=== PATIENT | female | born 1950 | race Caucasian/White ===

== ENCOUNTER 2016-08-14 15:42 | Outpatient (CLI) | payer MEDICARE, BC ==
--- NOTE | 2016-08-16 16:44 | Mammography Report ---
DIGITAL SCREENING MAMMOGRAM: 08/14/2016 CLINICAL INDICATION: A 66-year-old for screening. COMPARISON: 08/2013, 08/2011, 04/2010, 04/2009, 04/2008, 02/2007. TECHNIQUE: Routine CC and MLO projections were obtained of the breasts. FINDINGS: Parenchymal tissue within the breasts is predominantly fatty replaced. There are no domin ant masses, suspicious microcalcifications, or secondary signs of malignancy. In comparison to the p revious studies, there are no significant changes. IMPRESSION: NO MAMMOGRAPHIC EVIDENCE OF MALIGNANCY. NO SIGNIFICANT INTERVAL CHANGES. RECOMMENDATION: Screening mammography is recommended annually. BIRADS category 1 - negative. STANDARD QUALIFYING STATEMENTS 1. This examination was reviewed with the aid of Computed-Aided Detection (CAD). 2. A negative or benign imaging report should not delay biopsy if clinically suspicious findings are present. Consider surgical consultation if warranted. More than 5% of cancers are not identified b y imaging. 3. Dense breasts may obscure an underlying neoplasm. JOB #: [id number] EXT JOB #:[id number]
== END 2016-08-14 15:43 | disposition home or self-care (01) ==
LOC: DI 15:42
PROVIDERS: ATTEND Internal Medicine
DX: Z12.31 Encounter for screening mammogram for malignant neoplasm of breast (principal)
CPT/HCPCS: 77067

== ENCOUNTER 2017-04-30 15:13 | Outpatient (CLI) | payer MEDICARE, BC ==
--- NOTE | 2017-05-01 09:17 | XRAY Report ---
THREE VIEW BILATERAL HANDS: 04/30/2017 CLINICAL INDICATION: Osteoarthritis. FINDINGS: AP, lateral, oblique views of the bilateral hands demonstrate bilateral osteoarthritis involving the first carpometacarpal joints and interphalangeal joints, as well as the first metacarpophalangeal joints. There is no evidence of acute fracture or dislocation. No radiopaque foreign body is seen in the soft tissues. IMPRESSION: BILATERAL OSTEOARTHRITIS. TD: 05/01/2017 09:16
== END 2017-04-30 15:14 | disposition home or self-care (01) ==
LOC: DI 15:13
PROVIDERS: ATTEND Internal Medicine
DX: M19.041 Primary osteoarthritis, right hand (principal); M19.042 Primary osteoarthritis, left hand

== ENCOUNTER 2020-04-22 10:40 | Outpatient (CLI) | payer MEDICARE, BC ==
--- NOTE | 2020-04-22 16:57 | DEXA Report ---
PROCEDURE: Dexa Spine and/or Hip INDICATIONS: SCREENING FOR OSTEOPOROSIS, MENOPAUSE TECHNIQUE: Dual energy x-ray absorptiometry (DXA) was performed on a imedo System. Regions measur ed are the AP Spine, femoral neck, and if needed forearm. COMPARISON: None. FINDINGS: Lumbar Spine: Bone Mineral Density 0.978 g/cm/cm,T score -1.7, osteopenia Left Hip: Bone Mineral Density 0.740 g/cm/cm,T score -2.1, osteopenia Left Femoral Neck: Bone Mineral Density 0.762 g/cm/cm, T score -2.0, osteopenia (T score greater or equal to -1.0: NORMAL) (T score from -1.1 to -2.4: OSTEOPENIA) (T score less than or equal to -2.5 to: OSTEOPOROSIS) Impression: Osteopenia is present at the lumbosacral spine overall and the left hip overall, with add itional osteopenia identified at the left femoral neck on targeted imaging. Patients with diagnosis of osteoporosis or osteopenia should have regular bone mineral density assess ment. For those eligible for Medicare, routine testing is allowed once every 2 years. Testing frequ ency can be increased for patients who have rapidly progressing disease or for those who are receivin g medical therapy to restore bone mass. Reviewed by: Checo Rodriguez MD on 04/22/2020 3:56 PM [facility] Approved by: Checo Rodriguez MD on 04/22/2020 3:56 PM [facility] Station ID: [id number]
== END 2020-04-22 10:41 | disposition home or self-care (01) ==
LOC: DI 10:40
PROVIDERS: ATTEND Internal Medicine
DX: N95.8 Other specified menopausal and perimenopausal disorders (principal); Z13.820 Encounter for screening for osteoporosis; M85.89 Other specified disorders of bone density and structure, multiple sites

== ENCOUNTER 2020-04-22 10:45 | Outpatient (CLI) | payer MEDICARE, BC ==
--- NOTE | 2020-04-23 10:12 | Mammography Report ---
BILATERAL DIGITAL SCREENING MAMMOGRAM 3D/2D: 04/22/2020 CLINICAL: Routine Screening. Comparison is made to exams dated: 08/14/2016 mammogram, 08/20/2013 mammogram, 08/23/2011 mammogram, 05/09 mammogram, and 04/29/2009 mammogram - [facility]. There are scattered fibrogl andular elements in both breasts. No significant masses, calcifications, or other findings are seen in either breast. There has been no significant interval change. IMPRESSION: NEGATIVE There is no mammographic evidence of malignancy. A 1 year screening mammogram is recommended. This exam was interpreted at Station ID: [id number]. NOTE: For mammograms, a report in lay terms will be sent to the patient. Approximately 15% of breast malignancies will not be visualized mammographically. In the management of a palpable breast mass, a negative mammogram must not discourage biopsy of a clinically suspicious lesion. Electronically Signed By: Ti Calderon M.D. ddp/penrad:04/22/2020 12:08:59 ACR BI-RADS Category 1: Negative 3341F PARENCHYMAL PATTERN: (A) - The breast(s) demonstrate(s) scattered fibroglandular densities. BI-RADS CATEGORY: (1) - 1 RECOMMENDATION: (ANNUAL) - Recommend routine annual screening mammography. [id number] 1 year screening LATERALITY: (B)
== END 2020-04-22 10:46 | disposition home or self-care (01) ==
LOC: DI 10:45
PROVIDERS: ATTEND Internal Medicine
DX: Z12.31 Encounter for screening mammogram for malignant neoplasm of breast (principal)

== ENCOUNTER 2021-01-18 15:08 | Emergency (ER) | payer MEDICARE, BC ==
--- NOTE | 2021-01-18 16:13 | ED Physician Documentation ---
PD HPI HEAD INJURY - Stated complaint Stated Complaint: GLF - Chief complaint Chief Complaint: Trauma Hd/Nk - History obtained from History obtained from: Patient - History of Present Illness Mechanism of head injury: Fell (she states she tripped on shoelace and fell forward, striking mouth/nose part of face. Mild pain right ulnar wrist. brief nosebleed. No LOC. Having pain in upper teeth and mid face.) Timing - onset: Today Location of injury: Front (mouth and nose area primarily.) Associated symptoms: Other (brief nosebleed). No: LOC, AMS, Amnesia, Nausea / vomiting Symptoms worsen with: Palpation Contributing factors: No: Anticoagulated Similar symptoms before: Has not had sx before Recently seen: Not recently seen Review of Systems Constitutional: denies: Fever, Chills Nose: denies: Rhinorrhea / runny nose, Congestion Throat: denies: Sore throat Cardiac: denies: Chest pain / pressure Respiratory: denies: Cough GI: denies: Abdominal Pain, Nausea Skin: reports: Laceration (s) (inside upper lip. 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 - Present Medications Home Medications: Ambulatory Orders Medication Instructions Recorded Confirmed Loratadine/Pseudoephedrine 1 tab ORAL DAILY 01/18/21 01/18/21 [Claritin-D 24 Hour Tablet] - Allergies Allergies/Adverse Reactions: Allergies Allergy/AdvReac Type Severity Reaction Status Date / Time amoxicillin trihydrate * AdvReac Rash Verified 01/18/21 15:38 [From Augmentin] potassium clavulanate * AdvReac Rash Verified 01/18/21 15:38 [From Augmentin] Sulfa (Sulfonamide AdvReac Rash Verified 01/18/21 15:38 Antibiotics) - Social History Does the pt smoke?: No Smoking Status: Never smoker PD ED PE NORMAL - Vitals Vital signs reviewed: Yes - General General: Alert and oriented X 3, No acute distress, Well developed/nourished - HEENT HEENT: PERRL, EOMI (without pain), Moist mucous membranes, Other (inner upper lip with small superficial lac. No outer lacs and no disturbance of mark border. Nose is tender at tip without deformity. Septum without swelling. ). No: Dentition benign (no dental fractures. Has some tenderness and faint laxity right upper frontal tooth to palpation. Gumline is okay. No bleeding. ) - Neck Neck: Supple, no meningeal sign, No bony TTP - Cardiac Cardiac: RRR, No murmur - Respiratory Respiratory: Clear bilaterally - Abdomen Abdomen: Soft, Non tender - Back Back: No spinal TTP - Derm Derm: Normal color, Warm and dry - Extremities Extremities: No deformity, Other (right ulnar styloid area with slight tenderness, but no swelling and has good ROM of the wrist. ) - Neuro Neuro: Alert and oriented X 3, No motor deficit, No sensory deficit, Normal speech Results - Vitals Vitals: Vital Signs - 24 hr 01/18/21 01/18/21 15:38 17:23 Temperature 36.3 C L Heart Rate 91 88 Respiratory 16 14 Rate Blood Pressure 158/74 H 149/83 H O2 Saturation 98 98 Oxygen O2 Source Room air - Rads (name of study) head CT Radiology: Prelim report reviewed (no ICH nor acute process), See rad report maxilofacial CT Radiology: Prelim report reviewed (small fracture tip of nasal bone. No other acute findings. ), See rad report PD MEDICAL DECISION MAKING - ED course Complexity details: reviewed results, considered differential (facial injury. Not on anticoags. Has upper teeth tender, inner lip small lac, nose tenderness. Normal neuro. ), d/w patient Departure - Departure Disposition: 01 Home, Self Care Clinical Impression: Fall from slip, trip, or stumble Qualifiers: Encounter type: initial encounter Qualified Code(s): W01.0XXA - Fall on same level from slipping, tripping and stumbling without subsequent striking against object, initial encounter Nasal fracture Qualifiers: Encounter type: initial encounter Fracture type: closed Qualified Code(s): S02.2XXA - Fracture of nasal bones, initial encounter for closed fracture Dental contusion Qualifiers: Encounter type: initial encounter Qualified Code(s): S00.532A - Contusion of oral cavity, initial encounter Condition: Stable Record reviewed to determine appropriate education?: Yes Follow-Up: Roly Freed MD [Primary Care Provider] - Comments: Your scans show a small fracture on tip of nose bone. This will not need any particular treatment. No fractures in the mandible (where upper teeth are located) nor rest of face/head. Tylenol or Ibuprofen as needed for pains. Soft food and no firm chewing with front teeth for a week or so, to allow the tooth ligaments to firm. Discharge Date/Time: 01/18/21 17:24
--- NOTE | 2021-01-18 16:59 | CT Report ---
PROCEDURE: HEAD WO INDICATIONS: fall onto face TECHNIQUE: Noncontrast 4.5 mm thick angled axial sections acquired from the foramen magnum to the vertex. For r adiation dose reduction, the following was used: automated exposure control, adjustment of mA and/or kV according to patient size. COMPARISON: None FINDINGS: Image quality: Excellent. CSF spaces: Basal cisterns are patent. No extra-axial fluid collections. The ventricles are symmet bulmaro in size and shape. Brain: No intracranial bleeds or masses. There is cerebral volume loss for age, with resultant vent ricular and sulcal prominence. There are periventricular and deep white matter chronic small vessel ischemic changes. There is intracranial internal carotid artery atherosclerosis. Skull and face: There is no acute calvarial fracture. Right periorbital soft tissue swelling is noted , orbital tong are intact. Bilateral orbital globes are intact. Sinuses: Visualized sinuses and mastoids are clear. IMPRESSION: 1. No CT evidence of acute intracranial pathology. 2. Right periorbital soft tissue swelling. No gross orbital wall fracture. No acute skull fracture. P lease correlate with CT of facial bone findings. 3. Mild periventricular and deep white matter chronic small vessel ischemic changes. Reviewed by: Ben Soto MD on 01/18/2021 4:58 PM PST Approved by: Ben Soto MD on 01/18/2021 4:58 PM PST Station ID: [id number]
--- NOTE | 2021-01-18 17:08 | CT Report ---
PROCEDURE: MAXILLOFACIAL WO INDICATIONS: fall with facial injury maxilla/nose TECHNIQUE: Noncontrast 1.5 mm thick axial images acquired from the mandible through the frontal sinuses, with co fay and sagittal reformatting. For radiation dose reduction, the following was used: automated ex posure control, adjustment of mA and/or kV according to patient size. COMPARISON: None. FINDINGS: Image quality: Excellent. Bones and teeth: Orbital tong are intact. Sinus tong show no fracture or deformity. Nasal septum is intact. Subtle cortical irregularity involving tip of the nasal bone is seen suspicious for subtle minimally displaced bilateral distal nasal bone fracture. Visualized portions of the mandible demons trate no fractures or subluxation. Zygomatic arches are intact. Pterygoid plates are intact. Visua lized portions of the skull base and auditory canals are intact. Sinuses: Paranasal sinuses are aerated, without fluid levels, mucosal thickening, or mucoceles. Mas toid air cells are aerated. Soft tissues: Mild right periorbital soft tissue swelling is seen. No enlarged lymph nodes. No soft tissue lacerations or debris. Vascular: Visualized vascular structures appear normal in the absence of contrast. Bony vascular fo ramina and canals are intact. IMPRESSION: 1. Finding is suggestive of subtle nondisplaced fracture involving bilateral tip of nasal bone. No ot her facial bone fracture is seen. Nasal septum is midline. 2. Right periorbital soft tissue swelling. Orbital tong are intact. 3. Bilateral paranasal sinuses are well aerated. Reviewed by: Ben Soto MD on 01/18/2021 5:[address] [facility] Approved by: Ben Soto MD on 01/18/2021 5:07 PM PST Station ID: [id number]
[2021-01-18 17:24] VITALS: BP 149/83
== END 2021-01-18 17:24 | disposition home or self-care (01) ==
LOC: ED 15:08
DX: S02.2XXA Fracture of nasal bones, initial encounter for closed fracture (principal); S00.532A Contusion of oral cavity, initial encounter; W01.0XXA Fall on same level from slipping, tripping and stumbling without subsequent striking against object, initial encounter
CPT/HCPCS: 99282; 99284

== ENCOUNTER 2022-01-24 14:06 | Outpatient (CLI) | payer MEDICARE, BC ==
[2022-01-24 14:26] LABS: BASOPHILS # (AUTO) 0.1 10^3/uL (0.0-0.1); BASOPHILS % (AUTO) 0.9 %; EOSINOPHILS # (AUTO) 0.2 10^3/uL (0.0-0.7); EOSINOPHILS % (AUTO) 2.8 %; HCT - HEMATOCRIT 40.7 % (37.0-47.0); HGB - HEMOGLOBIN 13.1 g/dL (12.0-16.0); LYMPHOCYTES # (AUTO) 2.9 10^3/uL (1.5-3.5); LYMPHOCYTES % (AUTO) 36.3 %; MEAN CORPUSCULAR HEMOGLOBIN 29.9 pg (27.0-31.0); MEAN CORPUSCULAR HGB CONC 32.2 g/dL (32.0-36.0); MEAN CORPUSCULAR VOLUME 92.9 fL (81.0-99.0); MEAN PLATELET VOLUME 10.4 fL (7.9-10.8); MONOCYTES # (AUTO) 0.8 10^3/uL (0.0-1.0); MONOCYTES % (AUTO) 9.3 %; NEUTROPHILS # (AUTO) 4.1 10^3/uL (1.5-6.6); NEUTROPHILS % (AUTO) 50.6 %; PLT - PLATELET COUNT 253 10^3/uL (130-450); RED BLOOD COUNT 4.38 10^6/uL (4.20-5.40); RED CELL DISTRIBUTION WIDTH 12.6 % (12.0-15.0); WHITE BLOOD COUNT 8.1 x10^3/uL (4.8-10.8)
[2022-01-24 14:48] LABS: ALBUMIN 4.4 g/dL (3.2-5.5); BILIRUBIN,DIRECT 0.1 mg/dL (0.1-0.5); BILIRUBIN,TOTAL 0.5 mg/dL (0.2-1.0); TOTAL PROTEIN 7.4 g/dL (6.7-8.2)
== END 2022-01-24 14:07 | disposition home or self-care (01) ==
LOC: LAB 14:06
PROVIDERS: ATTEND Physician Assistant
DX: B35.1 Tinea unguium (principal)
CPT/HCPCS: 36415; 80076; 85025

== ENCOUNTER 2022-02-27 08:01 | Outpatient (CLI) | payer MEDICARE, BC ==
[2022-02-27 08:14] LABS: BASOPHILS % (AUTO) 0.6 %; EOSINOPHILS # (AUTO) 0.2 10^3/uL (0.0-0.7); EOSINOPHILS % (AUTO) 2.4 %; HCT - HEMATOCRIT 39.9 % (37.0-47.0); HGB - HEMOGLOBIN 12.6 g/dL (12.0-16.0); LYMPHOCYTES # (AUTO) 2.3 10^3/uL (1.5-3.5); LYMPHOCYTES % (AUTO) 31.5 %; MEAN CORPUSCULAR HEMOGLOBIN 29.4 pg (27.0-31.0); MEAN CORPUSCULAR HGB CONC 31.6 g/dL (32.0-36.0); MEAN PLATELET VOLUME 10.2 fL (7.9-10.8); MONOCYTES # (AUTO) 0.7 10^3/uL (0.0-1.0); NEUTROPHILS # (AUTO) 4.1 10^3/uL (1.5-6.6); NEUTROPHILS % (AUTO) 56.2 %; PLT - PLATELET COUNT 225 10^3/uL (130-450); RED BLOOD COUNT 4.29 10^6/uL (4.20-5.40); RED CELL DISTRIBUTION WIDTH 12.4 % (12.0-15.0); WHITE BLOOD COUNT 7.2 x10^3/uL (4.8-10.8)
[2022-02-27 08:29] LABS: ALBUMIN 4.3 g/dL (3.2-5.5); ALKALINE PHOSPHATASE 72 IU/L (42-121); ALT ALANINE AMINOTRANSFERASE 19 IU/L (10-60); AST ASPARTATE AMINOTRANSFERASE 18 IU/L (10-42); BILIRUBIN,TOTAL 0.9 mg/dL (0.2-1.0)
[2022-02-27 08:31] LABS: BILIRUBIN,DIRECT < 0.1 mg/dL (0.1-0.5)
== END 2022-02-27 08:02 | disposition home or self-care (01) ==
LOC: LAB 08:01
PROVIDERS: ATTEND Physician Assistant
DX: B35.1 Tinea unguium (principal)
CPT/HCPCS: 36415; 80076; 85025

== ENCOUNTER 2022-04-10 08:46 | Outpatient (CLI) | payer MEDICARE, BC ==
[2022-04-10 09:13] LABS: BASOPHILS # (AUTO) 0.1 10^3/uL (0.0-0.1); BASOPHILS % (AUTO) 0.9 %; EOSINOPHILS # (AUTO) 0.2 10^3/uL (0.0-0.7); EOSINOPHILS % (AUTO) 2.7 %; HCT - HEMATOCRIT 39.5 % (37.0-47.0); HGB - HEMOGLOBIN 12.8 g/dL (12.0-16.0); LYMPHOCYTES # (AUTO) 2.2 10^3/uL (1.5-3.5); LYMPHOCYTES % (AUTO) 31.7 %; MEAN CORPUSCULAR HEMOGLOBIN 30.3 pg (27.0-31.0); MEAN CORPUSCULAR HGB CONC 32.4 g/dL (32.0-36.0); MEAN CORPUSCULAR VOLUME 93.4 fL (81.0-99.0); MEAN PLATELET VOLUME 10.5 fL (7.9-10.8); MONOCYTES # (AUTO) 0.6 10^3/uL (0.0-1.0); MONOCYTES % (AUTO) 9.1 %; NEUTROPHILS # (AUTO) 3.9 10^3/uL (1.5-6.6); NEUTROPHILS % (AUTO) 55.5 %; PLT - PLATELET COUNT 234 10^3/uL (130-450); RED BLOOD COUNT 4.23 10^6/uL (4.20-5.40)
[2022-04-10 09:36] LABS: ALBUMIN 4.2 g/dL (3.2-5.5); BILIRUBIN,DIRECT 0.1 mg/dL (0.1-0.5); BILIRUBIN,TOTAL 0.7 mg/dL (0.2-1.0); TOTAL PROTEIN 7.2 g/dL (6.7-8.2)
== END 2022-04-10 08:47 | disposition home or self-care (01) ==
LOC: LAB 08:46
PROVIDERS: ATTEND Physician Assistant
DX: B35.1 Tinea unguium (principal)
CPT/HCPCS: 36415; 80076; 85025

== ENCOUNTER 2022-05-23 07:37 | Outpatient (CLI) | payer MEDICARE, BC ==
[2022-05-23 07:47] LABS: BASOPHILS % (AUTO) 0.6 %; EOSINOPHILS # (AUTO) 0.3 10^3/uL (0.0-0.7); EOSINOPHILS % (AUTO) 3.6 %; HCT - HEMATOCRIT 39.4 % (37.0-47.0); HGB - HEMOGLOBIN 12.6 g/dL (12.0-16.0); LYMPHOCYTES # (AUTO) 2.1 10^3/uL (1.5-3.5); MEAN CORPUSCULAR HEMOGLOBIN 29.8 pg (27.0-31.0); MEAN CORPUSCULAR VOLUME 93.1 fL (81.0-99.0); MEAN PLATELET VOLUME 10.3 fL (7.9-10.8); MONOCYTES # (AUTO) 0.5 10^3/uL (0.0-1.0); MONOCYTES % (AUTO) 6.7 %; NEUTROPHILS # (AUTO) 4.4 10^3/uL (1.5-6.6); PLT - PLATELET COUNT 291 10^3/uL (130-450); RED BLOOD COUNT 4.23 10^6/uL (4.20-5.40); RED CELL DISTRIBUTION WIDTH 12.2 % (12.0-15.0); WHITE BLOOD COUNT 7.3 x10^3/uL (4.8-10.8)
[2022-05-23 08:45] LABS: ALBUMIN 4.1 g/dL (3.2-5.5); BILIRUBIN,DIRECT 0.1 mg/dL (0.1-0.5); BILIRUBIN,TOTAL 0.2 mg/dL (0.2-1.0); TOTAL PROTEIN 7.4 g/dL (6.7-8.2)
== END 2022-05-23 14:41 | disposition home or self-care (01) ==
LOC: LAB 07:37
PROVIDERS: ATTEND Physician Assistant
DX: B35.1 Tinea unguium (principal)
CPT/HCPCS: 36415; 80076; 85025

== ENCOUNTER 2022-12-06 09:19 | Outpatient (CLI) | payer MEDICARE, BC ==
--- NOTE | 2022-12-06 16:28 | CT Report ---
PROCEDURE: SINUS SCREENING WO INDICATIONS: CHRONIC FRONTAL SINUSITIS TECHNIQUE: Noncontrast 3.0 mm axial images acquired from the frontal sinuses to the mid-sella, with coronal and sagittal reformats. For radiation dose reduction, the following was used: automated exposure control , adjustment of mA and/or kV according to patient size. COMPARISON: None. FINDINGS: Image quality: Excellent. Sinuses: Very minimal trace scattered areas of mucosal thickening most notable in the maxillary sinus es. No fluid levels. No mucous retention cysts versus polyps. Ostiomeatal Complexes: Ostiomeatal complexes are patent. Miscellaneous: Visualized intra-orbital contents are normal. No derek bullosa. Minimal nasal sep jana deviation. No paradoxical turbinates. IMPRESSION: Very minimal scattered areas of mucosal thickening are present. Reviewed by: Alyce Valle MD on 12/06/2022 4:26 PM PDT Approved by: Alyce Valle MD on 12/06/2022 4:26 PM PDT Station ID: [id number]
== END 2022-12-06 09:20 | disposition home or self-care (01) ==
LOC: DI 09:19
PROVIDERS: ATTEND Internal Medicine
DX: J32.1 Chronic frontal sinusitis (principal)

== ENCOUNTER 2023-08-14 08:14 | Outpatient (CLI) | payer MEDICARE, BC ==
--- NOTE | 2023-08-14 21:17 | DEXA Report ---
PROCEDURE: Dexa Spine and/or Hip INDICATIONS: MENOPAUSAL TECHNIQUE: Dual energy x-ray absorptiometry (DEXA) was performed in the regions detailed below. COMPARISON: 04/22/2020 FINDINGS: Lumbar Spine: Bone Mineral Density 0.969 g/cm/cm,T score -1.8. Previously -1.7 Left Femoral Neck: Bone Mineral Density 0.705 g/cm/cm, T score -2.4. Previously -2.0 Left Total Hip: Bone Mineral Density 0.730 g/cm/cm,T score -2.2. Previously -2.1 (T score greater or equal to -1.0: NORMAL) (T score from -1.1 to -2.4: OSTEOPENIA) (T score less than or equal to -2.5 to: OSTEOPOROSIS) IMPRESSION: Osteopenia Patients with diagnosis of osteoporosis or osteopenia should have regular bone mineral density assess ment. For those eligible for Medicare, routine testing is allowed once every 2 years. Testing frequ ency can be increased for patients who have rapidly progressing disease or for those who are receivin g medical therapy to restore bone mass. Reviewed by: Shiva Pope MD on 08/14/2023 8:15 PM [facility] Approved by: Shiva Pope MD on 08/14/2023 8:15 PM [facility] Station ID: [id number]
== END 2023-08-14 08:15 | disposition home or self-care (01) ==
LOC: DI 08:14
PROVIDERS: ATTEND Internal Medicine
DX: M85.89 Other specified disorders of bone density and structure, multiple sites (principal); N95.8 Other specified menopausal and perimenopausal disorders